=== PATIENT | female | born 1975 | race Caucasian/White ===

== ENCOUNTER 2017-05-30 13:57 | Emergency (ER) | payer OTHER ==
[~2017-05-30] VITALS: Ht 160 cm; Wt 77.1 kg
[~2017-05-30 13:57] MED LIST: AMITRIPTYLINE H25 MG PO; AZITHROMYCIN250 MG PO; BACLOFEN10 MG PO; CYCLOBENZAPRINE10 MG PO; HYDROCODON-ACE1 EA10 PO; LYRICA75 MG PO; MUCINEX600 MG PO; NAPROXEN500 MG PO; NORCO 7.5-3251 EACH PO; PROZAC20 MG PO; VENTOLIN HFA18 GM INH; VICODIN 5-3001 EACH PO
[2017-05-30] MEDS ORDERED: GABAPENTIN300 MG PO (14:12)
[2017-05-30] MEDS ORDERED: NORCO 5-325 TA1 EACH PO (16:54)
== END 2017-05-30 17:15 | disposition home or self-care (01) ==
LOC: ED 13:57
DX: M79.671 Pain in right foot (principal); F17.200 Nicotine dependence, unspecified, uncomplicated; Z90.710 Acquired absence of both cervix and uterus; Z88.8 Allergy status to other drugs, medicaments and biological substances; Z79.899 Other long term (current) drug therapy
CPT/HCPCS: 99283